=== PATIENT | female | born 1940 | race Caucasian/White ===

== ENCOUNTER 2016-10-13 08:16 | Outpatient (CLI) | payer MEDICARE ==
--- NOTE | 2016-10-13 10:29 | ULT ---
RIGHT UPPER QUADRANT ULTRASOUND 10/13/2016 HISTORY: Vertigo. Excessive diarrhea. Intermittent right upper quadrant pain. Intestinal malabsorption. COMPARISON: None. TECHNIQUE: Multiplanar moyer-scale sonographic imaging of the right upper quadrant obtained. 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 The imaged pancreatic parenchyma is unremarkable. The tail is slightly obscured by bowel gas. No focal liver lesion or intrahepatic biliary dilatatio n is evident. The common bile duct measures 4 mm (within normal limits). No gallbladder wall thickening, gallston es, or pericholecystic fluid appreciated. The right kidney measures 9.4 cm in craniocaudal dimensio n and demonstrates no stone, hydronephrosis, or mass. IMPRESSION: Unremarkable right upper quadrant ultrasound. POS: CHRISTOPHER
== END 2016-10-13 08:17 | disposition home or self-care (01) ==
LOC: MADULT 08:16
PROVIDERS: ATTEND Obstetrics & Gynecology
DX: K90.9 Intestinal malabsorption, unspecified (principal)
CPT/HCPCS: 76705

== ENCOUNTER 2020-02-07 12:53 | Outpatient (CLI) | payer MEDICARE ==
--- NOTE | 2020-02-07 18:49 | RAD ---
THREE VIEWS OF THE RIGHT SHOULDER: 02/07/20 HISTORY: Right shoulder pain for three weeks. FINDINGS: Three views of the right shoulder shows no evidence of acute fracture or dislocation. Mild degenerati ve changes are seen within the glenohumeral joint. Chronic scarring is seen in the right lung with in creased interstitial lung markings seen in the right lung. A pacemaker is partially visualized. Aorti c valve repair has been performed. IMPRESSION: Mild degenerative changes in the right shoulder without acute osseous abnormality. POS: EAA
== END 2020-02-07 12:54 | disposition home or self-care (01) ==
LOC: MADRAD 12:53
PROVIDERS: ATTEND Registered Nurse
DX: M25.511 Pain in right shoulder (principal); M19.011 Primary osteoarthritis, right shoulder